=== PATIENT | male | born 1995 | race Caucasian/White ===

== ENCOUNTER 2022-02-08 10:02 | Outpatient (REF) | payer OTHER, SELFPAY ==
--- NOTE | ~2022-02-08 | XR_ITS ---
EXAMINATION: XR ABDOMEN COMPLETE CLINICAL INDICATION: Nausea and vomiting COMPARISON: CT abdomen pelvis January 01, 2017 TECHNIQUE: 2 views of the abdomen. FINDINGS: No dilated air-filled loops of small bowel identified. Normal colonic stool burden. No abnormal air-fluid levels identified on upright imaging. No gross free abdominal air. Visualized lung bases are well aerated. No acute osseous abnormality. XR/XR abdomen min 2V IMPRESSION: Nonobstructive bowel gas pattern.
== END 2022-02-08 10:03 | disposition home or self-care (01) ==
LOC: HO.XRAY 10:02
PROVIDERS: PCP Internal Medicine; Visit Provider Internal Medicine
DX: R11.2 Nausea with vomiting, unspecified (principal)
CPT/HCPCS: 74019

== ENCOUNTER 2024-06-24 18:26 | Emergency (ER) | payer OTHER, SELFPAY ==
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
[2024-06-24 18:42] VITALS: BP 124/71; PULSE 104; O2SAT 98
[2024-06-24 18:43] VITALS: BP 136/76; PULSE 93; RESP 20; TEMP 36.9; O2SAT 98; BMI 28.2
[2024-06-24] MEDS: Ibuprofen 600 MG TABLET PO (19:04)
--- OUTSIDE RECORDS SUMMARY | 2024-06-24 19:13 | XMS_ITS | Encounter Summary ---
Author Organization [facility] Address [address] [place] [id number] Phone Care Team Providers Care Supervisor Fitting Name Role Phone Cali Dhillon MD Primary Care Provider Unavailabl e Encounter Details Date Type Department Care Team (Late st Contact Info) Description 10/22/2016 Conversion Encounter [facility] - [address], [address] [place] [address] Cali Dhillon MD Social History Tobacco Use Types Packs/Day Years Used Date Smoking Tobacco: Never Assessed Sex and Gender Information Value Date Recorded Sex Assigned at Not on file Legal Sex Male 10:33 PM EST Gender Identity Not on file Sexual Orientation Not on file documented as of this encounter Plan of Treatment Not on file documented as of this encounter Visit Diagnoses Not on filedocumented in this encounter Care Teams Supervisor Fitting Relationship Specialty Start Date End Date Cali Dhillon MD PCP - General 05/06/16 10/01/20 documented as of this encounter
--- OUTSIDE RECORDS SUMMARY | 2024-06-24 19:13 | XMS_ITS | Clinical Summary ---
Author Organization [facility] Address [address] [place] [id number] Phone Care Team Providers Care Automotive Starter Repairer Name Role Phone Unavailable Primary Care Provider Unavailabl e Allergies Active Allergy Reactions Criticality Noted Date Comments Amoxicillin Hives Low Cefprozil Hives Low Latex Rash Low Polymyxin B-Trimethoprim Hives Low Medications methylphenidate (CONCERTA) 36 MG CR tablet Take 36 mg by mouth daily. 7 Active albuterol HFA 108 (90 BASE) MCG/ACT inhalerIndicatio ns:Mild intermittent asthma without complication Inhale 2 puffs every 4 (four) hours as needed for wheezing. 1 Units 1 8 Active Additional Information Patient not taking.Reported on 03/21/2017 Active Problems Patient Care Coordination No te Formatting of this note migh t be different from the original. [place] ([facility] [place] mailed home 05/26/18. Inactivated. Problem Noted Date Diagnosed Date Proctitis 01/31/2017 Overview (10/15/2017): Severe inflammation on colonoscopy by Dr. Da Silva at [facility] 01/2017 likely due to ulcerative colitis. Attention-deficit hyperactivity disorder, combin ed type 04/13/2015 Overview (01/20/2017): 04/13/2015 Stopped Zoloft and Concerta 08/2015. Did go to [facility] for a few mos but not in counselling now. No depression but hard time focusing. Restarted Concerta 36mg 10/2016 which is helping. Right shoulder pain 04/13/2015 Overview (01/20/2017): 04/13/2015 Persistent - Saw Dr. Hastings 12/2013 and MRI ordered. Never did have surgery for torn labrum. .. Now doing well w/o any pain Mild intermittent asthma, uncomplicated 11/09/19 15 Assessment & Plan (01/20/2017 8:34 AM EST): No symptoms now Immunizations Immunization Administration Dates Next Due DTaP 05/30/1999, 7,1995, 996,1995 HPV Vaccine 9 Valent 10/27/2016 HPV, Quadrivalent 2014 Hep B, ped/adol 02/23/1996,1995,1995 Hib (PRP-T) 08/29/1996, 6,1995, 996 IPV 05/30/1999 Influenza 11/24/2008 Influenza, injectable, trivalent 02/18/2012,11/15 MMR 07/09/2000,08/29/1996 Meningococcal Conj (Menactra) MCV4P 10/05/2013,0 08/25/2007 OPV 1995,1995,1995 Tdap 08/25/2007 Varicella 08/05/2006,05/24/1996 Family History Relation Name Status Comments Cousin Maternal Cousin s: None Father Father: ADD, he patitis of unclear cause, substance abuse, premature . Was sick for a couple of days before passing Father's Sister Paternal Aun t: thalassemia major Maternal Grandfather Alive Materna l Uncle: lung disease, seizures,, Brain tumor, disabled Maternal Grandmother Materna l Aunt: None Mother Alive Mother: allergi es, Cold induced asthma, migraine Paternal Grandfather Pat GFa ther: cancer Paternal Grandmother Alive Pat GMo ther: thyroid removed, substance abuse, thalassemia major Social History Tobacco Use Types Packs/Day Years Used Date Smoking Tobacco: Never Assessed Sex and Gender Information Value Date Recorded Sex Assigned at Not on file Legal Sex Male 10:33 PM EST Gender Identity Not on file Sexual Orientation Not on file Last Filed Vital Signs Vital Sign Reading Time Taken Comments Blood Pressure 130/75 10/27/2016 12:00 AM EDT Pulse 68 10/27/2016 12:00 AM EDT Temperature 37.4 ??C (99.4 ??F) 03/21/2017 9:33 AM ES T Respiratory Rate - - Oxygen Saturation 97% 03/18/2017 8:34 AM EST Inhaled Oxygen Concentration - - Weight 90.3 kg (199 lb) 01/20/2017 8:11 AM EST Height 183.5 cm (6' 0.25 ) 10/27/2016 12:00 AM E DT Body Mass Index 26.8 10/27/2016 12:00 AM EDT Plan of Treatment Health Maintenance Due Date Last Done Comments HPV Vaccines (3 - Male 3-dose series) 01/19/2017 10/27/2016, 2014 DTaP,Tdap,and Td Vaccines (7 - Td or Tdap) 08/24/2017 08/25/2007, 05/30/1999, 11/24/1996, Additional history exists Influenza Vaccines (#1) 2023 02/18/20 12, 12/04/2010, 11/24/2008 COVID-19 Vaccine ( season) 2023 Hepatitis B Vaccines Completed 02/23/1996, 1995, 1995 HIB Vaccines Completed 08/29/1996, 11/14, 1995, Additional history exists IPV Vaccines Completed 05/30/1999, 11/14, 1995, Additional history exists MMR Vaccines Completed 07/09/2000, 08/29/1996 Varicella Vaccines Completed 08/05/2006, 05/24/1996 Meningococcal Vaccine Completed 10/05/2013, 008 Hepatitis A Vaccines Aged Out No long er eligible based on patient's age to complete this topic Men B Vaccine Aged Out No longer elig ible based on patient's age to complete this topic Pneumococcal Vaccine Aged Out No long er eligible based on patient's age to complete this topic
--- OUTSIDE RECORDS SUMMARY | 2024-06-24 19:13 | XMS_ITS | Data Portability ---
Author Organization [facility] Service Address [address] [place] [address] Assessment Encounter Date Assessment Date Assessment LastModified by Organization Details LastModified Time 01/31/2022 01/31/2022 Patient agreed and verbally consents to this audio and video Telehealth appt via a secure platform [email or web address] Not available 01/31/2022 10:00:34 Plan of Treatment Reminders Order Date Submit Date Provider Last Modified By Organization Details Last Modified Time Details Appointments None recorded. Lab TSH, serum or plasma 2019 020 jvanasse Not available 0 10:54:05 ELSY (antinuclea r antibodies) screen, serum 2019 020 jvanasse Not available 0 10:54:05 ferritin, serum or plasma 2019 020 jvanasse Not available 0 10:54:05 ESR (erythrocyt e sedimentati on rate), blood 2019 020 jvanasse Not available 0 10:54:06 vitamin D, 25-hydroxy, total, serum 2019 020 jvanasse Not available 0 10:54:06 vitamin B12 + folate, serum or blood 2019 020 jvanasse Not available 0 10:54:06 vitamin A (retinol), serum 2019 020 jvanasse Not available 0 10:54:06 CBC w/ auto diff 2019 020 jvanasse Not available 0 10:54:06 CMP, serum or plasma 2019 020 jvanasse Not available 0 10:54:06 TSH + free T4, serum 2019 020 jvanasse Not available 0 10:49:22 CBC 2019 020 jvanasse Not available 0 10:49:23 vitamin D, 25-hydroxy, total, serum 2019 020 jvanasse Not available 0 10:49:[address] referral 2019 020 [address] [address] Eileen Cristina MD, [address], [place], [address], 0 08:43:36 gastroenter ologist referral 2019 020 michael Jaime MD, [address] [place] [address] Dr, [place] [address], [place], [address], 0 08:42:[address] referral 2019 020 [facility], [address] [place] [address] , [place], [address], 0 09:44:32 Procedures None recorded. Surgeries None recorded. Imaging None recorded. Medication Orders Cipro 500 mg tablet 2021 022 [facility]/Pharmacy #2024, [address] [place], [address], 2 09:58:40 Imodium A-D 2 mg tablet 2021 [facility]/Pharmacy #2024, [address] [place], [address], 2 09:58:41 ondansetron 8 mg disintegrat ing tablet 2021 022 [facility]/Pharmacy #2024, [address] [place], [address], 09:58:40 Concerta 18 mg tablet,exte nded release 2021 022 [facility]Pharmacy #5, [address] [place], [address], 09:58:43 clindamycin HCl 300 mg capsule 2019 [facility]20 [id number], [address] [place] [address], [id number], 14:10:57 Patient TargetsNo targets recorded. Patient Instructions Encounter Date Encounter Id Patient Instructions Last Modified By Organization Details Last Modified Time 03/28/2019 [id number] hair loss from alopecia areata: care instructions Not available 03/28/2019 10:42:19 ulcerative colitis: care instructions Not available 03/28/2019 10:42:19 05/23/2019 [id number] hair loss from alopecia areata: care instructions Not available 05/23/2019 10:38:23 ulcerative colitis: care instructions Not available 05/23/2019 10:38:23 Reason for Referral Pattern Grader Referral for L oss of hair hair loss of eyebrows/eyelashes, rash on hands/feet/face -painful itchy x 2 months, on prednisone 40 Referring Physician: [facility], Encounter Date: 03/28/2019 Pattern Grader Referral for A lopecia areata rapidly progressive alopecia, significant hair loss in <2 months. has UC, also an undeterminable padmini Referring Physician: [facility], Encounter Date: 05/23/2019 Executive Legal Secretary Referral for Ulcerative colitis Referring Physician: [facility], Encounter Date: 05/23/2019 Results Created Date Observation Date Name Description Value Unit Range Abnormal Flag Note LastModifiedBy Organization Detail LastModifiedTime 02/09/20 22 02/08/2022 XR, abdom en, 2 view No observ ation record ed. [email or web address] [facility] (Medical Records) [address] [facility], [place], [address], 02/10/2022 09:25:51 Result Notes None recorded. Problems Name Problem SNOMED Code Status Onset Date Resolution Date Notes Provider Name and Address Organization Details Recorded Time Ulcerative colitis 80590330 Active 2018 Rai Gamble DO [address] [place], [address], [facility] 9 10:07:53 Acute sinusitis 13529477 Active 2021 JON UPTON [address] [place] [address], [address], [facility] 2 09:51:48 Cough 91828939 Active 2021 JON UPTON [address] [place] [address], [address], [facility] 2 16:47:37 Diarrhea 48057579 Active 2021 JON UPTON [address] [place] [address], [address], [facility] 2 09:51:13 Viral gastroente ritis 183288714 Active 2021 JON UPTON [address] [place] [address], [address], [facility] 2 09:51:20 Nausea and vomiting 27113533 Active 2021 JON UPTON [address] [place] [address], [address], [facility] 2 09:51:43 Sore throat 750937410 Active 2021 JON UPTON [address] [place] [address], [address], [facility] 2 09:53:21 Adult attention deficit hyperactiv ity disorder 329602233 Active 2021 JON UPTON [address] [place] [address], [address], [facility] 2 09:53:58 Nausea, vomiting and diarrhea 7249128 Active 2021 JON UPTON [address] [place], [address], [facility] 2 16:51:53 Asthma 965013255 Active 2021 JON UPTON [address] [place] [address], [address], [facility] 2 09:26:26 Problem Notes None recorded. Procedures Surgical History Date Name Laterality Status Provider Name and Address Organization Details Recorded Time 10/09/19 19 Colonoscopy completed Rai Gamble DO [address] [place] [address], [phone], [facility] 10/08/2018 09:21:37 Imaging Results Imaging Date Name Status LastModified by Organiz ation Details LastModified Time 02/08/2022 XR, abdomen, 2 view completed [facility] (Medical Records) [address] [place], [address], 02/10/2022 09:25:51 Procedure Notes None recorded. Medical Equipment None Reported. Allergies Allergen ID Allergen Name Allergen Category Reaction Reaction Severity Criticality Documentation Date Start Date Code Code System Note Provider Name and Address Organization Details Recorded Time 3162 amoxicill in medicatio n Not available Not available Not available 09/22/2018 723 RxNorm Melinda rodas [facility] 9 10:00:16 3517 latex environme nt,medica tion Not available Not available Not available 12/07/2018 96302 91 RxNorm Vidya rodas [facility] 9 14:45:00 3675 Cefzil medicatio n hives Not available Not available 03/28/2019 77181 1 RxNorm Vidya rodas [facility] 0 10:36:21 3751 Polytrim medicatio n Not available Not available Not available 05/23/2019 19110 0 RxNorm Vidya rodas [place] [facility] 0 10:15:59 Medications Name Sig Start Date Stop Date Status Note LastModified by Organization Details LastModified Time mesalamine 4 gram/60 mL enema 03/28 completed Not Available Not Available Not Available prednisone 10 mg tablet 05/22 completed Not Available Not Available Not Available clindamycin HCl 300 mg capsule TK 1 C PO Q 6 H FOR 7 DAYS 02/11 completed Not Available Not Available Not Available Concerta 18 mg tablet,exte nded release TAKE 1 TABLET BY MOUTH EVERY DAY FOR 14 DAYS active Not Available Not Available No t Available azithromyci n 250 mg tablet TAKE 2 TABLETS (500 MG) BY ORAL ROUTE ONCE DAILY FOR 1 DAY THEN 1 TABLET (250 MG) BY ORAL ROUTE ONCE DAILY FOR 4 DAYS 12/27 completed Not Available Not Available Not Available prednisone 20 mg tablet 05/22 completed Not Available Not Available Not Available azathioprin e 50 mg tablet TAKE 3 TABLETS BY MOUTH DAILY 02/11 completed Not Available Not Available Not Available ciprofloxac in 500 mg tablet TAKE 1 TABLET BY MOUTH EVERY 12 HOURS FOR 5 DAYS active Not Available Not Available No t Available peg-electro lyte solution 420 gram oral solution 12/07 completed Not Available Not Available Not Available triamcinolo ne acetonide 0.1 % topical cream APPLY TO AFFECTED SKIN TWICE DAILY FOR 2 WEEKS ON AND 1 WEEK OFF NEEDED FOR ITCH. AVOID FACE AND BODY FOLDS 02/11 completed Not Available Not Available Not Available ondansetron 8 mg disintegrat ing tablet PLACE 1 TABLET UNDER THE TONGHE TWICE A DAY FOR 28 DAYS. active Not Available Not Available No t Available Imodium A-D 2 mg tablet Take 1 tablet twice a day by oral route as needed for 7 days. 2021 active Not Available Not Available Not Avai lable ferrous sulfate 325 mg (65 mg iron) tablet TK 1 T PO QD 01/29 completed Not Available Not Available Not Available methylpredn isolone 4 mg tablets in a dose pack Take 1 dose pk by oral route as directed for 6 days. 12/17 completed Not Available Not Available Not Available albuterol sulfate HFA 90 mcg/actuati on aerosol inhaler INHALE 2 PUFFS EVERY 4 HOURS active Not Available Not Available No t Available ferrous sulfate 325 mg (65 mg iron) tablet,nadine yed release TK 1 T PO ONCE D 01/29 completed Not Available Not Available Not Available naproxen 500 mg tablet 09/22 completed Not Available Not Available Not Available mesalamine 1.2 gram tablet,nadine yed release 03/28 completed Not Available Not Available Not Available Vitals Date Recorded Body height Body mass index (BMI) Body weight Heart rate Oxygen saturation Oxygen saturation in Arterial blood by Pulse oximetry Body temperature Systolic blood pressure Diastolic blood pressure Provider Name and Address Organization Details Last Updated DateTime 0 183.52 cm 24.4 kg/m2 85720.8 6 g 97 /min 98 % 98 % 98.2 [degF] 138 mm[Hg] 60 mm[Hg] Vidya Mccracken MA [facility] 0 10:27:17 Date Recorded Body height Body mass index (BMI) Body weight Heart rate Oxygen saturation Oxygen saturation in Arterial blood by Pulse oximetry Systolic blood pressure Diastolic blood pressure Provider Name and Address Organization Details Last Updated DateTime 0 183.52 cm 23.1 kg/m2 73748.7 3 g 77 /min 96 % 96 % 110 mm[Hg] 72 mm[Hg] Vidya Mccracken MA [facility] 0 10:18:17 Date Recorded Body height Body mass index (BMI) Body weight Heart rate Oxygen saturation Oxygen saturation in Arterial blood by Pulse oximetry Systolic blood pressure Diastolic blood pressure Provider Name and Address Organization Details Last Updated DateTime 0 183.52 cm 23.9 kg/m2 58401.3 6 g 118 /min 98 % 98 % 106 mm[Hg] 70 mm[Hg] Vidya Mccracken MA [facility] 0 11:01:42 Social History Question Answer Notes LastModified by Organizat ion Details LastModified Time Tobacco Smoking Status Never Smoker [facility]ICOL [facility] 05/23/2019 10:17:20 What Was The Date Of Your Most Recent Tobacco Screening? 09/22/2018 Information n ot available 10/07/2018 Sex: Unknown Functional Status None recorded. Mental Status None recorded. Family History Nothing Reported. Medical History No medical history recorded. Immunizations Vaccine Type Date Status Note Provider Nam e and Address Organization Details Recorded Time HPV, unspecified formulation 10/27/2016 completed Kenisha Colon [facility] 02/19/2021 08:35:24 Past Encounters Encounter ID Performer Location Encounter Start Date Encounter Closed Date Diagnosis/Indication Diagnosis SNOMED-CT Code Diagnosis ICD10 Code Diagnosis Note [id number], [place] [address] 09/22/2018 09:52:40 09/22/2018 12:03:15 Ulcerative colitis 74400446 K51.90 relates has a need to see dr farley will also need to get lab work [id number], [place] [address] 12/07/2018 14:39:59 12/07/2018 15:14:14 Coxsackie virus disease 536107685 B34.1 Adverse re action to drug 55454608 T50.905A possible reaction to mesalamine will use the medrol [id number], [facility] [facility] [place] [address] 12/17/2018 14:39:11 12/17/2018 16:35:44 Coxsackie virus disease 577178907 B34.1 rash is fading Adverse re action to drug 59707697 T50.905A rash is fading Knee pain 67092418 M25.[id number], [place] [address] 03/28/2019 10:07:57 03/28/2019 10:44:58 Ulcerative colitis 08589905 K51.90 Loss of hair 965627266 L 65.9 Pruritic rash 30426545 L 28.2 failing prednisone Vitamin D deficiency 347 [address]55[id number], [place] [facility] [place] [address] 05/23/2019 09:58:54 05/23/2019 10:46:30 Ulcerative colitis 49732183 K51.90 Alopecia areata 92124651 L63.9 Pruritic rash 91306619 L 28.2 failing prednisone , has used numerous creams [id number] [facility] [address] [facility] [address],[place] [address] 01/30/2020 10:55:20 01/30/2020 12:40:23 Sialoadenitis 34934377 K11.20 will start with abx sour candy and warm compresses Abscess 326044564 L02.91 will call back thursday and let me know if improve[place] [id number] [facility] [address] [facility] [address],[place] [address] 12/27/2021 15:50:10 12/27/2021 17:07:03 Cough 75244190 R05.[id number] [facility] [address] [facility] [address],[place] [address] 01/31/2022 09:17:36 01/31/2022 12:42:43 Diarrhea 14494772 A07.8 as neededstar t a BRAT dietcontin ue fluids Viral gastroenteritis 11 1756206 A08.39 start cipro in case he has developed a bacterial infection and also for prevention of infection Nausea and vomiting 1693 1999 R11.2 zofran as needed Sore throat 457003180 J0 2.8 APAP or advil PRN Adult atte ntion deficit hyperactivity disorder 489041621 F90.1 re-start concertawi ll adjust dose after 14 days if needed Health Concerns Section Related Observation LastModified by Organization Detai ls LastModified Time None Recorded Concern Status LastModified by Organization Details LastModified Time None Recorded Advance Directives Directive None Recorded Payers Encounter Date Sequence Insurance Name Policy Number Policy Doty Covered Member ID Doty Member ID Guarantor Name 03/28/2019 1 [facility] [employer] [facility] (O) [id number] Rosi Sparrow [id number] [employer] 05/23/2019 1 [facility] [employer] [facility] [id number] Rosi Sparrow [id number] Mp Zuniga 01/30/2020 1 [facility] [id number] Mp Zuniga [id number] Mp Zuniga 12/27/2021 1 [facility] Mp Zuniga [id number] Mp Zuniga 01/31/2022 1 [facility] Mp Zuniga [id number] Mp Zuniga Notes Date Note Type Note Provider Name a nd Address Organization Details Recorded Time 0 text/html spots on hands, feet, and face - initially over the summer believed it may be HFMD, however the lesions have not gotten better. there are still spots all over his hands, face and feet adn there is dry skin over them. they are itchy sometimes and sensitive to touch also eyelashes/eyebros are thinning he is on prednisone right now for UC, had been 40 mg for 2 months and is on a taper 12 system ROS negative except where noted above- denies: chest pain, palpitations, sob, ankle swelling, visual problems, hearing problems, muscle aches or pains, numbness or tingling extremities, abdominal pain, bowel issues, bladder issues, sexual dysfunction, abnormal bleeding, sx of sinus/respiratory infection , headaches, dizziness/lightheadedn ess, rashes, or nail changes. HIEN Hairston [address] [place], [address], [facility] 03/28/2019 10:43:57 0 text/html went to see derm, didn't know what it was and was told to see a specialist in [place], which he hasn't seen. would also like to see a different GI specialist. would like to be re-evaluated for his sx of UC losing hair, bald patches, and thinning eyebrows and lost eye lashes, started about 2 months ago. had a sharp chest pain x 1 a couple weeks ago was laying in bed. episode lasted less than a minute has been having pain on the left side of his head, had migraines as a child, but not really any more. had the pain for about 5 days and then it went away last week. HIEN Hairston [address] [place], [address], [facility] 05/23/2019 14:01:42 0 text/html c/o lump on left side of jaw the patient reports that 2 and 1/2 weeks ago started with small pea sized lump on left side of jaw the patient reports that it got bigger and bigger feels at one point it popped pain with jaw opening and closing, like when he is chewing denies dental infection, tooth pain, recent acne, or ingrown hair does have a hx of infected salivary glands no fever, no sob, no cough, no abd pain, no chest pain, no n/v/d, no sore throat JON UPTON [address] [place], [address], [facility] 01/30/2020 11:20:19 2 text/html medication check tele-med phone callpatient consents to phone the patient report mild dry cough, mostly in the morningencouraged patient to start on anti-histamine and flonasewill try that and keep me up to date about his cough otherwise doing much better JON UPTON [address] [place], [address], [facility] 12/27/2021 16:47:56 2 text/html c/o gastroenteriti patient originally scheduled for a CPE; had to change appt to phone call due to illness the patient reports he is having diarrhea and vomiting, wet cough, and a sore throatCOVID negative twicecould have a regular virus or possibility for RSV, flu, rhinovirus, adenovirus give symptoms suggested a course of zofran and imodium PRNcontinue to keep hydrated also recommended liquids to start then transition to the BRAT diet as tolerated will also start him on a prevenative abx for short 5 day course adhd: diagnosed as a childin his recordswas on concerta; stopped when he was older but finding it hard to focus, organize his thoughts and 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
[2024-06-24 20:11] VITALS: BP 131/77; PULSE 84; RESP 20; TEMP 36.6; O2SAT 99
== END 2024-06-24 20:12 | disposition home or self-care (01) ==
PROVIDERS: Emergency Provider Emergency Medicine Emergency Medical Services
DX: S39.012A Strain of muscle, fascia and tendon of lower back, initial encounter (principal); V43.52XA Car driver injured in collision with other type car in traffic accident, initial encounter; Y93.9 Activity, unspecified; Y92.410 Unspecified street and highway as the place of occurrence of the external cause; Y99.8 Other external cause status
CPT/HCPCS: 72100; 99283

== ENCOUNTER → 2024-06-24 18:45 | Outpatient (BNV) | payer OTHER, SELFPAY | PROVIDERS: Emergency Provider Emergency Medicine Emergency Medical Services; Visit Provider Radiology Diagnostic Radiology | DX: M54.50 Low back pain, unspecified (principal); V89.2XXA Person injured in unspecified motor-vehicle accident, traffic, initial encounter | CPT/HCPCS: 72100 ==